=== PATIENT | female | born 1980 | race African-American/Black ===

== ENCOUNTER 2017-06-26 02:12 | Emergency (ER) | payer MEDICAID ==
[~2017-06-26] VITALS: Ht 175.3 cm; Wt 145.4 kg
[2017-06-26 02:27] VITALS: Ht 175.3 cm; Wt 145.4 kg
[2017-06-26 06:01] VITALS: BP 189/95
== END 2017-06-26 06:01 | disposition home or self-care (01) ==
LOC: ED 02:12
DX: L03.221 Cellulitis of neck (principal); I10 Essential (primary) hypertension; E03.9 Hypothyroidism, unspecified